=== PATIENT | female | born 1975 | race Caucasian/White ===

== ENCOUNTER 2025-01-14 17:47 | Emergency (ER) | payer OTHER, BC ==
[~2025-01-14] VITALS: Ht 172.7 cm; Wt 140.6 kg
[2025-01-14 17:49] VITALS: TEMP 98.6
[2025-01-14] MEDS ORDERED: IBUP-1492 PO (18:31)
[2025-01-14] MEDS ORDERED: CYCL5TAB3 PO (18:31)
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
[2025-01-14 18:47] VITALS: BP 164/80; PULSE 83; RESP 17; O2SAT 98
== END 2025-01-14 18:53 | disposition home or self-care (01) ==
LOC: EDBD 17:47 → EDH 17:47
DX: S10.91XA Abrasion of unspecified part of neck, initial encounter (principal); T23.102A Burn of first degree of left hand, unspecified site, initial encounter; Z90.49 Acquired absence of other specified parts of digestive tract; E11.9 Type 2 diabetes mellitus without complications; V89.2XXA Person injured in unspecified motor-vehicle accident, traffic, initial encounter; Y93.89 Activity, other specified; Y92.89 Other specified places as the place of occurrence of the external cause; Y99.8 Other external cause status
CPT/HCPCS: 99283